=== PATIENT | male | born 1980 | race Caucasian/White ===

== ENCOUNTER 2024-08-17 09:17 | Day surgery (SDC) | payer OTHER, SELFPAY ==
[2024-08-17] VITALS (9 sets, daily range): BP systolic 114–171; BP diastolic 72–85; BMI 24.0
[2024-08-17 09:57] LABS: Hematocrit 38.2 % (39.0-52.0); Hemoglobin 12.5 g/dL (13.0-18.0); Mean Corp Hgb Conc. 32.7 g/dL (33.0-37.0); Mean Corpuscular Volume 85.7 fL (80.0-94.0); Mean Platelet Volume 9.3 fL (7.4-10.4); Platelet Count 132 10^3/uL (130-400); Red Blood Cell Count 4.46 10^6/uL (4.70-6.10); Red Cell Dist. Width 15.2 % (11.5-14.5); White Blood Cell Count 5.9 10^3/uL (4.8-10.8)
[2024-08-17 10:17] LABS: INR 0.91; PT 12.7 Sec (11.4-14.6)
[2024-08-17 10:18] LABS: APTT 38.4 Sec (23.4-35.0)
[2024-08-17] MEDS: BACTROBAN NASAL 1 GRAM NASAL (10:26)
[2024-08-17] MEDS: PERIDEX 0.12% ORAL RINSE 15 ML PO (10:26)
[2024-08-17 10:29] LABS: Blood Urea Nitrogen 72 mg/dl (9-20); Calcium 9.8 mg/dl (8.4-10.2); Carbon Dioxide 20 mmol/L (22-30); Chloride 100 mmol/L (98-107); Estimated Creatinine Clearance 7 ml/min; Glucose 96 mg/dl (70-99); Potassium 5.7 mmol/L (3.5-5.1); Sodium 139 mmol/L (135-145); eGFR 5.44
--- NOTE | 2024-08-17 11:05 | W.PA-PDMP ---
[place]-PDMP
-
Checked the [place]- Pres[place] Drug Monitoring Program website, no red flags identified; safe to proceed with prescription. Patient endorses that he takes as needed diazepam prior to HD sessions, instructed patient that he is to hold diazepam while
taking as needed narcotic following surgical procedure. He vocalizes understanding of instruction/education, also provided as needed Narcan.
--- NOTE | 2024-08-17 11:53 | W.SUR.PREOP ---
Pre-Operative Surgical Note
-
I have examined this patient prior to the performance of the scheduled procedure.
The patient's condition is unchanged from the time of the current History and
Physical and the patient is able to undergo the scheduled procedure.
--- NOTE | 2024-08-17 14:15 | OR.RPT ---
Operative Report
Operative Report
PROCEDURE DATE: 08/17/2024
Preoperative diagnosis: End-stage renal disease on hemodialysis
Postoperative diagnosis: Same
Procedure: Left upper extremity brachiocephalic arteriovenous fistula creation
Surgeon: Baldo
County Director Welfare: None
Complications: None
Anesthesia: General
Indications for procedure:
End-stage renal disease on hemodialysis. Prior had right upper extremity AV access creation done elsewhere. 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 Now brought for left
upper extremity AV access creation. Risk/benefit/alternatives all fully discussed. Patient understood all wish to proceed.
Description of procedure:
Patient was identified brought to the operating room placed on the table in supine position. After the induction of anesthesia, I mapped the veins myself with an ultrasound probe in the operating room. The wrist cephalic vein was marginal to
reasonable, but the radial artery looks very small and somewhat calcified. Therefore I felt better not to pursue a radiocephalic fistula. The antecubital extension of the cephalic vein and the cephalic vein in the upper arm itself under ultrasound
looked good and the brachial artery looks good as well. Therefore I elected to proceed with brachiocephalic fistula creation in the left upper extremity.
After the adequate administration of anesthesia and perioperative antibiotics he was prepped and draped in the standard surgical fashion. A standard preoperative timeout was undertaken and everybody was in agreement the plan. A transverse incision
was made in the proximal volar aspect of the forearm just distal to the antecubital fossa. This was carried through skin subcutaneous tissue. The antecubital extension of the cephalic vein was identified and carefully dissected away from
surrounding structures and great care to avoid any injury to structures. There was a confluence of veins here including antecubital branch that connected the cephalic system to the basilic system. Branches were ligated between silk ties and
divided to allow for mobilization of the cephalic vein/antecubital extension of the cephalic vein. Cephalad and laterally I could see the likely main cephalic vein branch. I had to ligate this between silk ties and divided to allow better
mobilization of the antecubital extension. As such I was able to mobilize a suitable length of cephalic vein. Note, the tissues were slightly more challenging to dissect surrounding the veins likely secondary to prior venipunctures and slight
scarring in the immediate tissue surrounding the veins. Once I done this I then deepened my dissection in the medial aspect of the incision site through the fascial layer. The brachial artery was carefully identified and carefully dissected away
from surrounding structures take great care to avoid injury to structures. I passed a vessel loop around it proximally and distally. Next I gave the patient 3000 units of intravenous heparin. I then ligated the cephalic vein distally in my field
with a silk tie and a clip. I then transected it. I distended under heparinized saline. It distended very well. I marked the anterior surface under distention to avoid any kinking or twisting. The vein was suitable size but just to be sure I
ran a 3 mm dilator through which passed without any difficulty whatsoever. Next I tightened my double looped Vesseloops on the artery proximally and distally. I then made an arteriotomy with 11 blade and extended it using a Choudhury scissor. I
spatulated the cephalic vein and sewed an end to side anastomosis using a running 6-0 Prolene suture. Prior to completing and tying down my suture line I backbled and forebled the [place] artery. Next I released my bulldog clamp on the vein and
then released my Vesseloops on the artery. There was an excellent thrill in the fistula. There was an excellent Doppler radial signal at the wrist. At this point I was very satisfied. I irrigated. I achieved and confirmed full hemostasis. I
then closed in layers using 3-0 Vicryl deep dermal layer followed by 4-0 Monocryl subcuticular stitch. Dermabond was applied. The patient tolerated the procedure well.
[2024-08-17] MEDS: TYLENOL 650 MG PO (15:03)
[2024-08-17] MEDS: ROXICODONE 5 MG PO (15:04)
== END 2024-08-17 16:37 | disposition home or self-care (01) ==
LOC: CATH 09:17
PROVIDERS: ATTENDING PHYSICIAN Surgery Vascular Surgery; FAMILY PHYSICIAN Registered Nurse
DX: I12.0 Hypertensive chronic kidney disease with stage 5 chronic kidney disease or end stage renal disease (principal); N18.6 End stage renal disease; Z99.2 Dependence on renal dialysis; I73.9 Peripheral vascular disease, unspecified; Z79.899 Other long term (current) drug therapy
CPT/HCPCS: 36821; 80048; 85027; 85610; 85730; 93005

== ENCOUNTER → 2024-09-28 09:15 | Outpatient (REF) | payer OTHER, SELFPAY | LOC: DHVS 09:15 | PROVIDERS: ATTENDING PHYSICIAN Registered Nurse | DX: N18.6 End stage renal disease (principal); Z79.2 Long term (current) use of antibiotics; I77.0 Arteriovenous fistula, acquired | CPT/HCPCS: 93990 ==